=== PATIENT | male | born 1990 | race Caucasian/White ===

== ENCOUNTER 2017-09-23 12:36 | Emergency (ER) | payer OTHER ==
[~2017-09-23] VITALS: Ht 177.8 cm; Wt 70.8 kg
[2017-09-23 12:40] VITALS: BP 126/81
== END 2017-09-23 13:58 | disposition home or self-care (01) ==
LOC: ER 12:36
DX: F41.9 Anxiety disorder, unspecified (principal); F32.9 Major depressive disorder, single episode, unspecified; Z76.0 Encounter for issue of repeat prescription; F17.210 Nicotine dependence, cigarettes, uncomplicated

== ENCOUNTER 2019-10-01 16:55 | Emergency (ER) | payer MEDICAID, OTHER ==
[~2019-10-01] VITALS: Ht 180.3 cm; Wt 70.3 kg
[2019-10-01 17:11] VITALS: BP 101/59
== END 2019-10-01 20:18 | disposition home or self-care (01) ==
LOC: ER 16:55
DX: F41.9 Anxiety disorder, unspecified (principal); Z53.21 Procedure and treatment not carried out due to patient leaving prior to being seen by health care provider

== ENCOUNTER 2020-09-04 08:31 | Emergency (ER) | payer MEDICAID ==
[~2020-09-04] VITALS: Ht 180.3 cm; Wt 68.0 kg
[2020-09-04 08:33] VITALS: BP 148/79
== END 2020-09-04 09:13 | disposition home or self-care (01) ==
LOC: ER 08:31
DX: F41.1 Generalized anxiety disorder (principal); F32.9 Major depressive disorder, single episode, unspecified; Z76.0 Encounter for issue of repeat prescription